=== PATIENT | female | born 1995 | race Two or more races ===

== ENCOUNTER 2025-06-12 17:00 | Emergency (ER) | payer OTHER ==
[~2025-06-12] VITALS: Ht 149.9 cm; Wt 54.4 kg
[2025-06-12] MEDS ORDERED: VENLAFAXINE HCL75 M2 (18:05)
[2025-06-12] MEDS ORDERED: ACETAMINOPHEN 500 MG GEL..CAP PO ONE ×2 (18:45→19:25)
[2025-06-12 20:10] LABS: BASO % 0.6 % (0.1-1.2); EOS # 0.12 (0.04-0.54); EOS % 1.0 % (0.7-7.0); LYMPH # 2.13 (1.18-3.74); LYMPH % 16.9 % (19.3-53.1); MEAN PLATELET VOLUME 9.30 fl (9.4-12.4); MONO # 0.62 (0.24-0.82); MONO % 4.9 % (4.7-12.5); NEUT # 9.63 (1.56-6.13); NEUT % 76.3 % (34.0-71.1); RED CELL DISTRIBUTION WIDTH 13.0 % (11.6-14.4)
[2025-06-12 20:47] LABS: ALT/SGPT 26.0 U/L (12-78); AST/SGOT 22.0 U/L (15-37); BILIRUBIN TOTAL 0.31 mg/dL (0.3-1.2); BUN CREA RATIO 19.0 (7.0-25.0); CREATININE SERUM 0.84 mg/dL (0.55-1.02); GFR 80.16; GLUCOSE FASTING 96.0 mg/dL (65-100); OSMOLALITY SERUM 277.0 MOSM/KG (275-295)
[2025-06-12 21:11] LABS: GLOBULINA 3.8 G/DL (2.4-3.5)
[2025-06-12] MEDS ORDERED: CEFTRIAXONE SODIUM 2,000 MG VIAL IV ONE (21:45)
[2025-06-12] MEDS ORDERED: TRAMADOL HCL 50 MG TABLET PO STA (21:59)
[2025-06-12] MEDS ORDERED: CEFTRIAXONE SODIUM 2,000 MG VIAL ONE (22:10)
[2025-06-12] MEDS ORDERED: PEPCID AC20 MG PO (23:06)
[2025-06-12] MEDS ORDERED: BACTRIM DS TAB1 EACH PO (23:06)
[2025-06-12] MEDS ORDERED: FAMOTIDINE/PF 20 MG/2 ML VIAL IV ONE (23:30)
[2025-06-12] MEDS ORDERED: ONDANSETRON HCL 2 MG/ML VIAL IV ONE (23:30)
[2025-06-12] MEDS ORDERED: ONDANSETRON HCL 2 MG/ML VIAL ONE (23:31)
[2025-06-12] MEDS ORDERED: FAMOTIDINE/PF 20 MG/2 ML VIAL ONE (23:31)
== END 2025-06-13 01:11 ==
LOC: ER 17:01
PROVIDERS: General Practice
DX: N76.4 Abscess of vulva (principal); Z88.8 Allergy status to other drugs, medicaments and biological substances